=== PATIENT | female | born 1975 | race Caucasian/White ===

== ENCOUNTER → 2017-07-27 | Outpatient (REF) | payer BC ==
[2017-07-27 19:09] LABS: BLOOD UREA NITROGEN 7 MG/DL (7-18); CREATININE FOR GFR 0.71 MG/DL (0.55-1.02); GLOMERULAR FILTRATION RATE > 60.0 (>58)
== END ==
LOC: M LABNEURO 11:13
PROVIDERS: ATTEND Psychiatry & Neurology Neurology
DX: I10 Essential (primary) hypertension (principal)

== ENCOUNTER → 2018-01-17 | Outpatient (CLI) | payer BC | LOC: M RAD 16:48 | DX: J32.0 Chronic maxillary sinusitis (principal) ==

== ENCOUNTER → 2018-02-22 | Outpatient (CLI) | payer BC | LOC: M EKG 15:51 | DX: I49.9 Cardiac arrhythmia, unspecified (principal); G47.9 Sleep disorder, unspecified | CPT/HCPCS: 93005 ==

== ENCOUNTER 2018-03-02 10:45 | Day surgery (SDC) | payer BC ==
[2018-03-02] MEDS: LR 1,000 ML IV (11:04)
[2018-03-02] MEDS: METHYLENE BLUE 0.5% (5MG/ML) 10 ML AMP (PROVAYBLUE)(Q9968 PER 1MG) As Ordered (13:41)
[2018-03-02] MEDS: OXYMETAZOLINE NASAL SPRAY (AFRIN) As Ordered ×2 (13:42→14:57)
[2018-03-02] MEDS: LIDOCAINE W/EPINEPHRINE 1% 20ML VIAL As Ordered (13:42)
[2018-03-02] MEDS: SODIUM CHLORIDE 0.9% NASAL GEL 15GM (AYR) As Ordered (13:42)
[2018-03-02] MEDS ORDERED: LIDOCAINE 2% INJ 100 MG/5 ML SDV (FOR ANES.) As Ordered (13:49)
[2018-03-02] MEDS ORDERED: fentaNYL 100 MCG/2 ML INJECTION (J3010) As Ordered ×2 (13:49→13:50)
[2018-03-02] MEDS ORDERED: MIDAZOLAM INJ 2 MG/2 ML VIAL (J2250) As Ordered (13:49)
[2018-03-02] MEDS ORDERED: GLYCOPYRROLATE INJ 0.2 MG/ML 2 ML VIAL As Ordered ×2 (13:49→13:54)
[2018-03-02] MEDS ORDERED: dexameTHASONE 4 MG/ML 1ML VIAL (J1100) As Ordered (13:49)
[2018-03-02] MEDS ORDERED: ONDANSETRON 4MG/2ML VIAL (J2405) As Ordered (13:49)
[2018-03-02] MEDS ORDERED: ROCURONIUM BROMIDE 50 MG/5 ML VIAL As Ordered (13:49)
[2018-03-02] MEDS ORDERED: METOCLOPRAMIDE INJ 10MG/2ML VIAL (J2765) As Ordered (13:49)
[2018-03-02] MEDS ORDERED: NEOSTIGMINE 10 MG/10 ML VIAL (J2710) As Ordered (13:49)
[2018-03-02] MEDS ORDERED: PROPOFOL 200 MG/20 ML VIAL As Ordered (13:49)
[2018-03-02] MEDS ORDERED: LR 1,000 ML IV (16:15)
[2018-03-02] MEDS ORDERED: ONDANSETRON 4MG/2ML VIAL (J2405) IV (16:15)
[2018-03-02] MEDS ORDERED: fentaNYL 100 MCG/2 ML INJECTION (J3010) IV (16:15)
== END 2018-03-02 18:00 | disposition home or self-care (01) ==
LOC: M SDC 10:45
DX: J34.2 Deviated nasal septum (principal); J34.89 Other specified disorders of nose and nasal sinuses; J34.3 Hypertrophy of nasal turbinates; G47.33 Obstructive sleep apnea (adult) (pediatric); M46.92 Unspecified inflammatory spondylopathy, cervical region; R25.1 Tremor, unspecified; F17.210 Nicotine dependence, cigarettes, uncomplicated; Z79.899 Other long term (current) drug therapy
CPT/HCPCS: 30520

== ENCOUNTER → 2020-06-11 | Outpatient (CLI) | payer BC ==
[~2020-06-11] MED LIST: ALLE24TA7 PO; FLUC150T; FLUTISP; PROP20TA72 PO
== END ==
LOC: M RAD 14:42
PROVIDERS: ATTEND Otolaryngology
DX: J32.0 Chronic maxillary sinusitis (principal)

== ENCOUNTER → 2020-09-27 | Outpatient (CLI) | payer BC | LOC: M LABSMTC 10:28 | PROVIDERS: ATTEND Student in an Organized Health Care Education/Training Program | DX: Z20.828 Contact with and (suspected) exposure to other viral communicable diseases (principal) ==

== ENCOUNTER → 2021-03-19 | Outpatient (CLI) | payer BC ==
[~2021-03-19] MED LIST changes: +LIDOCAINE 1% MDV 20ML VIAL As Ordered ONE
[2021-03-19 14:25] LABS: APPEARANCE, CSF CLEAR (CLEAR); COLOR, CSF COLORLESS (COLORLESS); CSF TUBE# CELL CNT TUBE 3
[2021-03-19 14:35] LABS: CSF TUBE# GLU TUBE 1; CSF TUBE# TP TUBE 1; GLUCOSE CSF 55 MG/DL (40-75); TOTAL PROTEIN,CSF 33 MG/DL (15-45)
[2021-03-19 15:06] VITALS: BP 138/85
--- NOTE | 2021-03-19 17:36 | REP ---
INDICATION: MS LUMBAR PUNCTURE. TECHNIQUE: The procedure was performed under the direct supervision of Dr. Flaherty. The risks and benefits of the procedure were explained to the patient and informed consent was obtained. The L3-4 interspace was localized using fluoroscopic guidance. The skin was prepped and draped in a sterile fashion. 1% lidocaine was used as a local anesthetic. Using fluoroscopic guidance a 22-gauge spinal needle was inserted and advanced into the thecal sac. Opening pressure measured 14 cm of H2O. 12 ml of spinal fluid was withdrawn and sent to lab. The patient tolerated the procedure well and there were no immediate complications. Less than 6 seconds of fluoro time was utilized for this procedure. FINDINGS: Opening pressure measured 14 cm of H2O. IMPRESSION: Fluoro guidance for lumbar puncture. Opening pressure measured 14 cm of H2O. <Electronically signed by Alphonso Taylor > 03/19/21 1715 <Electronically signed by Chas Flaherty > 03/19/21 [id number]
== END ==
LOC: M IRPRO 12:16
PROVIDERS: ATTEND Psychiatry & Neurology Neurology
DX: G35 Multiple sclerosis (principal)